=== PATIENT | female | born 2000 | race Caucasian/White ===

== ENCOUNTER 2019-11-06 15:28 | Emergency (ER) | payer BC ==
[~2019-11-06] VITALS: Ht 170.2 cm; Wt 61.4 kg
[2019-11-06 15:33] VITALS: BP 124/84; TEMP 98.8
[2019-11-06] MEDS ORDERED: ESTARYLLA 35 MC1 TAB PO (15:44)
[2019-11-06 15:55] LABS: COLLECTION METHOD CLEAN CATCH
[2019-11-06 16:03] LABS: MUCOUS Present /lpf; PH 7 (5-8); URINE APPEARANCE Hazy; URINE BACTERIA Rare /hpf; URINE BILIRUBIN Negative (NEGATIVE); URINE BLOOD 1+ (NEGATIVE); URINE COLOR Yellow; URINE GLUCOSE Negative (NEGATIVE); URINE KETONE Negative (NEGATIVE); URINE LEUKOCYTE ESTERASE 1+ (NEGATIVE); URINE NITRATE Negative (NEGATIVE); URINE PROTEIN(semi-quant) Negative (NEGATIVE); URINE RBC >50 /hpf; URINE UROBILINOGEN Negative (NEGATIVE)
[2019-11-06 16:37] LABS: BASO % 0.3 % (0.0-2.0); EOS # 0.1 (0.0-0.7); EOS % 0.6 % (0-4.0); GRAN # 6.4 (1.4-6.5); GRAN % 72.4 % (42.2-75.2); HEMATOCRIT 39.2 % (35.0-45.0); HEMOGLOBIN 13.2 g/dl (12.0-15.0); LYMPH # 1.9 (1.2-3.4); LYMPH % 21.3 % (20.0-51.0); MEAN CELL VOLUME 87 fl (80.0-95.0); MEAN CORPUSCULAR HEMOGLOBIN 29 pg (26.0-32.0); MEAN CORPUSCULAR HGB CONC 34 g/dl (33.0-37.0); MEAN PLATELET VOLUME 11.1 fl (7.4-10.4); MONO # 0.5 (0.1-0.6); MONO % 5.2 % (1.7-9.3); PLATELET COUNT 259 K/mm3 (130-400); RED BLOOD COUNT 4.53 M/mm3 (4.10-5.30); REDCELL DISTRIBUTION WIDTH-CV 12.2 % (11.5-14.5)
[2019-11-06 16:44] LABS: CALCIUM 9.3 mg/dL (8.4-10.2); CREATININE, serum 0.78 (0.52-1.25)
[2019-11-06] MEDS ORDERED: NORCO 325 MG-51 TAB PO (16:56)
[2019-11-06] MEDS ORDERED: FLOMAX 0.40.4 MG/CAP PO (16:56)
[2019-11-06] MEDS ORDERED: ZOFRAN 4MG T4 MG/TAB PO (16:56)
[2019-11-06 17:04] VITALS: PULSE 86
== END 2019-11-06 17:06 | disposition home or self-care (01) ==
LOC: COL.ER 15:28
PROVIDERS: Emergency Medicine
DX: N20.2 Calculus of kidney with calculus of ureter (principal); R50.9 Fever, unspecified; Z32.02 Encounter for pregnancy test, result negative; Z79.1 Long term (current) use of non-steroidal anti-inflammatories (NSAID); Z79.3 Long term (current) use of hormonal contraceptives
CPT/HCPCS: Q9967